=== PATIENT | female | born 1980 | race American Indian/Alaskan Native ===

== ENCOUNTER 2017-11-24 12:32 | Emergency (ER) | payer OTHER ==
[2017-11-24] MEDS ORDERED: TESSALON PERLES PO ONE (16:16)
--- NOTE | 2017-11-24 16:57 | Emergency Department Report ---
- General Chief Complaint: Upper Respiratory Infection Stated Complaint: FLU LIKE SYMPTOMS Time Seen by Provider: 11/24/17 16:15 Source: patient Mode of arrival: Ambulatory Limitations: No Limitations - History of Present Illness Initial Comments: This is a 37-year-old female nontoxic, well nourished in appearance, no acute signs of distress presents to the ED with c/o of productive cough x2 days. Patient stated that her coworker that she has been in contact with is diagnosed with the flu. Patient denies any recent travels, long care rides, or recent hospital stays. Patient denies any chest pain, calf pain, shortness of breathe , fever, chills, nausea, vomiting, headache, stiff neck, hemoptysis, numbness or tingling. Patient denies any drug allergies or past medical history. MD Complaint: cough, rhinorrhea, nasal congestion -: days(s) (2) Severity: mild Consistency: constant Improves With: nothing Worsens With: nothing Associated Symptoms: rhinorrhea, nasal congestion, cough. denies: fever, chills , myalgias, diaphoresis, headache, sore throat, stiff neck, chest pain, shortness of breath, abdominal pain, nausea, vomiting, diarrhea, dysuria, rash, confusion, right sweats, weight loss, epistaxis, hoarseness, ear pain Treatments Prior to Arrival: none - Related Data Previous Rx's Medication Instructions Recorded Last Taken Type Azithromycin [Zithromax Z-WILLIAM] 250 mg PO DAILY #6 tablet 11/24/17 Unknown Rx Benzonatate [Tessalon Perle] 100 mg PO Q6H PRN #20 capsule 11/24/17 Unknown Rx Allergies Allergy/AdvReac Type Severity Reaction Status Date / Time No Known Allergies Allergy Unverified 11/24/17 12:38 ED Review of Systems ROS: Stated complaint: FLU LIKE SYMPTOMS Other details as noted in HPI Constitutional: denies: chills, fever Eyes: denies: eye pain, eye discharge, vision change ENT: denies: ear pain, throat pain Respiratory: cough. denies: shortness of breath, wheezing Cardiovascular: denies: chest pain, palpitations Endocrine: no symptoms reported Gastrointestinal: denies: abdominal pain, nausea, diarrhea Genitourinary: denies: urgency, dysuria, discharge Musculoskeletal: denies: back pain, joint swelling, arthralgia Skin: denies: rash, lesions Neurological: denies: headache, weakness, paresthesias Psychiatric: denies: anxiety, depression Hematological/Lymphatic: denies: easy bleeding, easy bruising ED Past Medical Hx - Past Medical History Previous Medical History?: No - Surgical History Past Surgical History?: Yes Additional Surgical History: tubal ligation - Social History Smoking Status: Never Smoker Substance Use Type: None - Medications Home Medications: Home Medications Medication Instructions Recorded Confirmed Last Taken Type Azithromycin [Zithromax Z-WILLIAM] 250 mg PO DAILY #6 tablet 11/24/17 Unknown Rx Benzonatate [Tessalon Perle] 100 mg PO Q6H PRN #20 capsule 11/24/17 Unknown Rx ED Physical Exam - General Limitations: No Limitations General appearance: alert, in no apparent distress - Head Head exam: Present: atraumatic, normocephalic, normal inspection - Eye Eye exam: Present: normal appearance, PERRL, EOMI. Absent: scleral icterus, conjunctival injection, nystagmus, periorbital swelling, periorbital tenderness Pupils: Present: normal accommodation - ENT ENT exam: Present: normal exam, normal orophraynx, mucous membranes moist, TM's normal bilaterally, normal external ear exam - Neck Neck exam: Present: normal inspection, full ROM. Absent: tenderness, meningismus, lymphadenopathy, thyromegaly - Respiratory Respiratory exam: Present: normal lung sounds bilaterally. Absent: respiratory distress, wheezes, rales, rhonchi, stridor, chest wall tenderness, accessory muscle use, decreased breath sounds, prolonged expiratory - Cardiovascular Cardiovascular Exam: Present: regular rate, normal rhythm, normal heart sounds. Absent: irregular rhythm, systolic murmur, diastolic murmur, rubs, gallop - GI/Abdominal GI/Abdominal exam: Present: soft, normal bowel sounds. Absent: distended, tenderness, guarding, rebound, rigid, diminished bowel sounds - Rectal Rectal exam: Present: deferred - Extremities Exam Extremities exam: Present: normal inspection, full ROM, normal capillary refill. Absent: tenderness, pedal edema, joint swelling, calf tenderness - Back Exam Back exam: Present: normal inspection, full ROM. Absent: tenderness, CVA tenderness (R), CVA tenderness (L), muscle spasm, paraspinal tenderness, vertebral tenderness, rash noted - Neurological Exam Neurological exam: Present: alert, oriented X3, CN II-XII intact, normal gait, reflexes normal - Psychiatric Psychiatric exam: Present: normal affect, normal mood - Skin Skin exam: Present: warm, dry, intact, normal color. Absent: rash ED Course Vital Signs 11/24/17 12:38 Temperature 97.7 F Pulse Rate 101 H Respiratory 20 Rate Blood Pressure 112/85 O2 Sat by Pulse 100 Oximetry - Reevaluation(s) Reevaluation #1: 11/24/17 16:58 Patient is speaking in full sentences with no signs of distress noted. ED Medical Decision Making - Medical Decision Making This is a 37-year-old female presents with upper respiratory infection. Patient is stable and was examined by me. Chest x-ray has been obtained and dictated by radiologist with normal exam. Patient notified of x-ray results with noted by the patient. Influenza swab has been obtained and negative. Patient received Tessalon Perle the ED with patient that his symptoms is improving cough. I will treat patient empirically with azithromycin for upper respiratory infection due to symptoms getting worse. Wells criteria 0 point. Patient was instructed Follow-up with a primary care doctor in 3-5 days or if symptoms worsen and continue return to emergency room as soon as possible. At time time of discharge, the patient does not seem toxic or ill in appearance. No acute signs of distress noted. Patient agrees to discharge treatment plan of care. No further questions noted by the patient. Critical care attestation.: If time is entered above; I have spent that time in minutes in the direct care of this critically ill patient, excluding procedure time. ED Disposition Clinical Impression: Upper respiratory infection Qualifiers: URI type: unspecified URI Qualified Code(s): J06.9 - Acute upper respiratory infection, unspecified Disposition: -01 TO HOME OR SELFCARE Is pt being admited?: No Does the pt Need Aspirin: No Condition: Stable Instructions: Upper Respiratory Infection (ED), Benzonatate (By mouth), Azithromycin (By mouth) Additional Instructions: Follow-up with a primary care doctor in 3-5 days or if symptoms worsen and continue return to emergency room as soon as possible. Prescriptions: Azithromycin [Zithromax Z-WILLIAM] 250 mg PO DAILY #6 tablet Benzonatate [Tessalon Perle] 100 mg PO Q6H PRN #20 capsule PRN Reason: Cough Referrals: PRIMARY CARE, [Primary Care Provider] - 3-5 Days DEVON CAMPOS MD [Staff Physician] - 3-5 Days [facility] [Outside] - 3-5 Days [facility] [Outside] - 3-5 Days Forms: Work/School Release Form(ED)
--- NOTE | 2017-11-24 17:45 | XRay Report ---
FINAL REPORT EXAM: XR CHEST ROUTINE 2V HISTORY: cough TECHNIQUE: PA and lateral views of the chest PRIORS: None. FINDINGS: Lines, tubes, and devices: Lungs and pleura: Trachea is normal in position. Lungs are clear of infiltrate, pleural effusion, vascular congestion, or pneumothorax. Cardiomediastinal silhouette: Cardiac and mediastinal silhouettes are unremarkable. Other: Bony structures are intact. IMPRESSION: No acute cardiopulmonary process seen.
[2017-11-24 18:26] VITALS: BP 113/82
== END 2017-11-24 19:00 | disposition home or self-care (01) ==
LOC: ED 12:32
DX: J06.9 Acute upper respiratory infection, unspecified (principal); Z98.51 Tubal ligation status
CPT/HCPCS: 71046; 87400; 99283

== ENCOUNTER 2017-12-07 13:15 | Emergency (ER) | payer OTHER | END 2017-12-07 17:50 | disposition left against medical advice (07) | LOC: ED 13:15 | DX: Z53.21 Procedure and treatment not carried out due to patient leaving prior to being seen by health care provider (principal) ==